=== PATIENT | male | born 1945 | race Caucasian/White ===

== ENCOUNTER 2018-09-20 06:37 | Inpatient (IN) | payer MEDICARE, OTHER ==
[2018-09-20] MEDS: TRANEXAMIC ACID 1,000 MG in DEXTROSE 5% 100 ML IVPB (06:00)
[~2018-09-20 06:37] MED LIST: BUPIVACAINE 0.5% (SDV) 30 ML, morphine SULFATE (PF) 8 MG, EPINEPHrine 0.3 MG, KETOROLAC... IRR
[2018-09-20] MEDS: THROMBIN 5000 UNIT VIAL (06:40)
[2018-09-20] MEDS: POLYMYXIN/BACITRACIN 1L IRRIG (06:40)
[2018-09-20] MEDS: CA CHLORIDE (GM) 10% 10 ML INJ (06:40)
[2018-09-20] MEDS: DEXAMETHASONE 1 MG TAB PO (06:58)
[2018-09-20] MEDS: GABAPENTIN 300 MG CAP PO ×2 (06:58→21:37)
[2018-09-20] MEDS: LACTATED RINGER'S 1,000 ML IV* ×2 (07:00→12:30)
[2018-09-20 07:17] LABS: ADD MAN DIFF? NO
[2018-09-20 07:20] LABS: BASOPHILS % 0.3 % (0.0-2.0); EOSINOPHILS % 0.3 % (0.0-7.0); HEMOGLOBIN 16.2 g/dl (14.0-18.0); LYMPHOCYTES # 1.4 10^3/ul (0.8-2.9); LYMPHOCYTES % 21.7 % (15.0-51.0); MEAN CORPUSCULAR HEMOGLOBIN 29.1 pg (29.0-33.0); MEAN CORPUSCULAR HGB CONC 34.5 g/dl (32.0-37.0); MEAN CORPUSCULAR VOLUME 84.4 fl (82.0-101.0); MEAN PLATELET VOLUME 10.1 fl (7.4-10.4); MONOCYTE # 0.4 10^3/ul (0.3-0.9); MONOCYTES % 6.6 % (0.0-11.0); NEUTROPHIL # 4.6 10^3/ul (1.6-7.5); NEUTROPHILS % 70.6 % (39.0-77.0); PLATELET COUNT 238 10^3/UL (140-415); RED BLOOD COUNT 5.57 10^6/ul (4.70-6.10); RED CELL DISTRIBUTION WIDTH 13.1 % (11.5-14.5)
[2018-09-20 07:20] LABS: WHITE BLOOD COUNT 6.5 10^3/ul (4.8-10.8)
[2018-09-20 07:39] LABS: ALANINE AMINOTRANSFERASE 41 IU/L (13-69); ALBUMIN 4.8 g/dl (3.3-4.9); ALKALINE PHOSPHATASE 67 IU/L (42-121); ANION GAP 14 (5-13); ASPARTATE AMINO TRANSFERASE 33 IU/L (15-46); BLOOD UREA NITROGEN 13 mg/dl (7-20); CALCIUM 9.7 mg/dl (8.4-10.2); CARBON DIOXIDE 24 mmol/L (21-31); CHLORIDE 102 mmol/L (97-110); CREATININE 0.74 mg/dl (0.61-1.24); GLUCOSE 135 mg/dl (70-220); POTASSIUM 3.9 mmol/L (3.5-5.1); SODIUM 140 mmol/L (135-144); TOTAL PROTEIN 7.8 g/dl (6.1-8.1)
[2018-09-20] MEDS ORDERED: CEFAZOLIN 1 GM INJ ×2 (07:49→08:11)
[2018-09-20] MEDS ORDERED: LIDOCAINE 2% (SDV) 5 ML INJ (07:49)
[2018-09-20] MEDS ORDERED: PROPOFOL 20 ML (07:49)
[2018-09-20] MEDS ORDERED: ROPIVACAINE 0.5 % 30 ML VIAL (07:50)
[2018-09-20] MEDS ORDERED: ONDANSETRON 4 MG INJ (07:50)
[2018-09-20 07:54] LABS: INR 0.96; PROTIME 12.9 Sec (11.9-14.9)
[2018-09-20 07:55] LABS: PARTIAL THROMBOPLASTIN TIME 26.9 Sec (23.0-35.0)
[2018-09-20] MEDS ORDERED: MIDAZOLAM 1 MG/ML 2 ML INJ (08:11)
[2018-09-20] MEDS: CEFAZOLIN 2 GM/50 ML (PMX) 50 ML IVPB (08:45)
[2018-09-20] MEDS ORDERED: hydrALAzine 20 MG INJ (09:00)
[2018-09-20] MEDS ORDERED: MAGNESIUM HYDROXIDE 30ML CUP PO (11:00)
[2018-09-20] MEDS ORDERED: morphine 2 MG INJ IV (11:00)
[2018-09-20] MEDS ORDERED: ONDANSETRON 4 MG INJ IV ×2 (11:00→12:00)
[2018-09-20] MEDS ORDERED: OXYCODONE/ACETAMINOPHEN (5/325) TAB PO ×4 (11:00→12:00)
[2018-09-20] MEDS ORDERED: DIPHENHYDRAMINE 50 MG INJ IV ×2 (11:00→12:00)
[2018-09-20] MEDS ORDERED: ZOLPIDEM 5 MG TAB PO (11:00)
[2018-09-20] MEDS ORDERED: FENTAnyl 50 MCG/ML VIAL (11:34)
[2018-09-20] MEDS: TRANEXAMIC ACID 1,000 MG in DEXTROSE 5% 100 ML IV (11:36)
[2018-09-20] MEDS ORDERED: CEFAZOLIN 1 GM/50 ML (PMX) 50 ML IVPB (11:52)
[2018-09-20] MEDS ORDERED: LABETALOL HCL 20MG INJ IV (12:00)
[2018-09-20] MEDS ORDERED: hydrALAzine 20 MG INJ IV (12:00)
[2018-09-20] MEDS ORDERED: HYDROmorphONE 1 MG/5 ML IV SYRINGE IV ×3 (12:00)
[2018-09-20] MEDS ORDERED: MEPERIDINE 25 MG INJ IV (12:00)
[2018-09-20] MEDS ORDERED: METOCLOPRAMIDE 10 MG INJ IV (12:00)
[2018-09-20] MEDS ORDERED: MIDAZOLAM 1 MG/ML 2 ML INJ IV (12:00)
[2018-09-20] MEDS ORDERED: FENTAnyl 50 MCG/ML VIAL IV ×2 (12:00)
[2018-09-20] MEDS ORDERED: EPHEDrine SULFATE 50 MG/5 ML SYG IV (12:00)
[2018-09-20] MEDS: CEFAZOLIN 1 GM/50 ML (PMX) 50 ML IVPB ×2 (12:06→18:36)
[2018-09-20] MEDS: DEXAMETHASONE 2 MG TAB PO ×2 (12:06→18:36)
[2018-09-20] MEDS: FENTAnyl 50 MCG/ML VIAL IV (12:27)
[2018-09-20] MEDS: morphine 2 MG INJ IV ×2 (12:35→14:22)
[2018-09-20] MEDS: KETOROLAC 15 MG INJ IV (19:02)
[2018-09-20] MEDS ORDERED: FINASTERIDE 1 MG PO (21:00)
[2018-09-20] MEDS: SENNA/DOCUSATE NA (8.6MG/50MG) TAB PO (21:37)
[2018-09-20] MEDS: ATORVASTATIN 20 MG TAB PO (21:37)
[2018-09-21] MEDS: DEXAMETHASONE 2 MG TAB PO ×2 (00:36→06:01)
[2018-09-21] MEDS: KETOROLAC 15 MG INJ IV (01:07)
[2018-09-21] MEDS: CEFAZOLIN 1 GM/50 ML (PMX) 50 ML IVPB (03:49)
[2018-09-21] MEDS: THYROID 30 MG TAB PO (08:56)
[2018-09-21] MEDS: ASPIRIN 81 MG TAB PO (08:56)
[2018-09-21] MEDS: AMLODIPINE 5 MG TAB PO (08:57)
[2018-09-21] MEDS: SENNA/DOCUSATE NA (8.6MG/50MG) TAB PO (08:57)
[2018-09-21] MEDS: BENAZEPRIL 20 MG TAB PO (08:57)
[2018-09-21] MEDS: HYDROCHLOROTHIAZIDE 12.5 MG CAP PO (08:57)
[2018-09-21] MEDS ORDERED: THYROID 90 MG PO (09:00)
== END 2018-09-21 09:48 | disposition home or self-care (01) | DRG 483 ==
LOC: REC 06:37 → MS1 12:12
PROC: 0RRK0JZ Replacement of Left Shoulder Joint with Synthetic Substitute, Open Approach (ICD-10-PCS; principal; 2018-09-20 08:30)
PROC: 0PBB0ZZ Excision of Left Clavicle, Open Approach (ICD-10-PCS; 2018-09-20 08:30)
DX: M19.012 Primary osteoarthritis, left shoulder (principal)
CPT/HCPCS: 73030; 80053; 85025; 85610; 85730; 86999; 88304; 88311; 97167